=== PATIENT | female | born 1975 | race Caucasian/White ===

== ENCOUNTER → 2022-04-06 | Outpatient (CLI) | payer MEDICARE ==
--- NOTE | 2022-04-27 10:47 | MM ---
Reason for Exam: Screening (asymptomatic). Last mammogram was performed 3 year(s) and 7 month(s) ago. Risk Values: Diana 5 year model risk: 0.5%. NCI Lifetime model risk: 6.4%. Prior Study Comparison: 05/11/2017 Bilateral MG screening mammo w CAD - 2, [place]. 08/31/2018 Bilateral MG screening mammo w [address] Tissue Density: The breast tissue is heterogeneously dense. This may lower the sensitivity of mammography. Findings: Analyzed By CAD. There is no suspicious group of microcalcifications or new suspicious mass in either breast. Overall Assessment: Negative, BI-RAD 1 Management: Screening Mammogram of both breasts in 1 year. A clinical breast exam by your physician is recommended on an annual basis and results should be correlated with mammographic findings. Electronically signed and approved by: Kyle Caruso M.D.
== END | disposition home or self-care (01) ==
LOC: RADMAMWWP 13:30
PROVIDERS: ATTEND Family Medicine
DX: Z12.13 Encounter for screening for malignant neoplasm of small intestine (principal)
CPT/HCPCS: 77063; 77067

== ENCOUNTER → 2023-07-10 | Outpatient (CLI) | payer MEDICARE ==
--- NOTE | 2023-07-10 15:06 | US ---
EXAMINATION TYPE: US pelvic complete DATE OF EXAM: 07/10/2023 COMPARISON: NONE CLINICAL INDICATION: Female, 48 years old with history of N92.1 EXCESSIVE AND FREQUENT MENSTRUATION W ITH IRR; Irregular menses. TECHNIQUE: Transabdominal (TA). Transabdominal sonographic images of the pelvis were acquired. Date of LMP: 07/06/2023, G0 EXAM MEASUREMENTS: Uterus: 7.2 x 4.4 x 3.3 cm Endometrial Stripe: 0.3 cm Right Ovary: 2.7 x 1.6 x 1.3 cm Left Ovary: 2.4 x 1.8 x 1.2 cm 1. Uterus: Anteverted Heterogenous without discrete mass. 2. Endometrium: wnl 3. Right Ovary: follicle seen 4. Left Ovary: follicle seen 5. Bilateral Adnexa: wnl 6. Posterior cul-de-sac: trace amount of free fluid seen Cervix- nabothian cyst IMPRESSION: 1. No evidence for acute abdominal process. 2. Endometrium is within normal limits for thickness.
== END | disposition home or self-care (01) ==
LOC: RADUSWWP 14:35
PROVIDERS: ATTEND Obstetrics & Gynecology
DX: N92.1 Excessive and frequent menstruation with irregular cycle (principal)
CPT/HCPCS: 76856

== ENCOUNTER → 2024-05-17 | Outpatient (CLI) | payer MEDICARE ==
[2024-05-17 14:51] LABS: Basophils # (A) 0.05 X 10*3/uL (0.00-0.10); Basophils % (A) 0.9 %; Eosinophils # (A) 0.19 X 10*3/uL (0.04-0.35); Eosinophils % (A) 3.6 %; HCT 40.4 % (37.2-46.3); HGB 13.1 g/dL (12.0-15.0); Lymphocytes % (A) 26.5 %; MCH 29.5 pg (27.0-32.0); MCHC 32.4 g/dL (32.0-37.0); Mean Platelet Volume 8.9 FL (9.5-12.2); Monocytes # (A) 0.58 X 10*3/uL (0.20-1.00); NRBC Per 100 WBC 0 X 10*3/uL (0.00-0.01); Neutrophils # (A) 3.04 X 10*3/uL (1.80-7.70); Neutrophils % (A) 57.6 %; Platelet Count 302 X 10*3/uL (140-440); RBC 4.44 X 10*6/uL (4.10-5.20); WBC 5.28 X 10*3/uL (4.50-10.00)
[2024-05-17 17:43] LABS: ALT 18 U/L (8-44); AST 16 U/L (13-35); Albumin 4.5 g/dL (3.8-4.9); Albumin/Globulin Ratio 2.05 Ratio (1.60-3.17); Alkaline Phosphatase 46 U/L (41-126); Blood Urea Nitrogen 10.8 mg/dL (9.0-27.0); Calcium 9.5 mg/dL (8.7-10.3); Carbon Dioxide 24.3 mmol/L (21.6-31.8); Chloride 108 mmol/L (96-109); Chol/HDL Ratio 2.83 Ratio; Globulin 2.2 g/dL (1.6-3.3); Glucose 92 mg/dL (70-110); LDL Cholesterol,Calculated 99.6 mg/dL (0.0-131.0); Potassium 4.7 mmol/L (3.5-5.5); Sodium 143 mmol/L (135-145); Total Bilirubin 0.3 mg/dL (0.3-1.2); Total Protein 6.7 g/dL (6.2-8.2)
== END | disposition home or self-care (01) ==
LOC: LABWHC1 09:41
PROVIDERS: ATTEND Internal Medicine
DX: Z00.00 Encounter for general adult medical examination without abnormal findings (principal)
CPT/HCPCS: 36415; 80053; 80061; 84443; 85025

== ENCOUNTER → 2024-06-11 | Outpatient (CLI) | payer MEDICARE ==
--- NOTE | 2024-07-08 12:50 | XR ---
Gorman Kasia ID: [id number] : 1975 EXAMINATION TYPE: XR chest 2V DATE OF EXAM: 06/12/2024 COMPARISON: None HISTORY: 49-year-old female reactive airways disease, shortness of breath TECHNIQUE: Frontal and lateral views FINDINGS: Heart normal size. Aorta and pulmonary vasculature are within normal limits. There is mild patchy den sity at the left base. No other consolidation or pleural effusion seen. IMPRESSION: Some patchy atelectasis versus early developing infiltrate at the left base. Correlate for any sympto ms of pneumonia.
== END ==
LOC: EEVIPCON 15:00 → CPPFTMAIN 15:00
PROVIDERS: ATTEND Internal Medicine
DX: Z12.31 Encounter for screening mammogram for malignant neoplasm of breast (principal); J45.909 Unspecified asthma, uncomplicated
CPT/HCPCS: 71046; 94060; 94726; 94729

== ENCOUNTER → 2024-08-02 | Outpatient (CLI) | payer MEDICARE ==
--- NOTE | 2024-08-05 08:29 | MM ---
Reason for Exam: Screening (asymptomatic). Last mammogram was performed 2 year(s) and 4 month(s) ago. Patient History: Menarche at age 16. Last menstrual period: 08/02/2024 Risk Values: Diana 5 year model risk: 0.6%. NCI Lifetime model risk: 6.1%. Prior Study Comparison: 05/11/2017 Bilateral MG screening mammo w CAD - 2, [place]. 08/31/2018 Bilateral MG screening mammo w CAD - 2, [place]. 04/06/2022 Bilateral MG 3D screening mammo w/cad, [facility]. Tissue Density: The breasts are heterogeneously dense, which may obscure small masses. Findings: Analyzed By CAD. There is no suspicious group of microcalcifications or textural distortion. Vague nodular densities in the upper margin of the left breast and posterior central to central lower right breast for which spot compression views are recommended. Recommend repeat CC view with X CCL view. Overall Assessment: Incomplete: need additional imaging evaluation, BI-RAD 0 Management: Diagnostic Mammogram of both breasts. . Patient should continue monthly self-breast exams. A clinical breast exam by your physician is recommended on an annual basis. This exam should not preclude additional follow-up of suspicious palpable abnormalities. Note on Diana scores and lifetime risk: 1. A Diana score greater than 3% is considered moderate risk. If this is the case, consider specialist referral to assess eligibility for a risk reducing agent. 2. If overall lifetime risk for the development of breast cancer is 20% or higher, the patient may qualify for future screening with alternating mammogram and breast MRI. [facility], , 08/05/2024 8:26 AM. Electronically signed and approved by: Lloyd Foster M.D. Radiologis
== END | disposition home or self-care (01) ==
LOC: RADMAMWWP 13:08
PROVIDERS: ATTEND Internal Medicine
CPT/HCPCS: 77063; 77067

== ENCOUNTER → 2024-08-02 | Outpatient (CLI) | payer MEDICARE ==
--- NOTE | 2024-08-02 15:11 | XR ---
EXAMINATION TYPE: XR chest 2V DATE OF EXAM: 08/02/2024 COMPARISON: 06/11/2024 HISTORY: 49-year-old female follow-up pneumonia, J18.9 PNEUMONIA, UNSPECIFIED ORGANISM TECHNIQUE: Frontal and lateral views FINDINGS: Heart upper limits of normal in size. Aorta and pulmonary vasculature within normal limits. There is mild interstitial density which remains. The previous patchy density at the left base shows improveme nt. Degenerative change left glenohumeral joint. IMPRESSION: The previous patchy left basilar density shows improvement. Mild diffuse interstitial density remains . Correlate for any bronchitis or chronic asthma. [facility], , 08/02/2024 3:08 PM
== END | disposition home or self-care (01) ==
LOC: RADXRMAIN 10:59
PROVIDERS: ATTEND Internal Medicine
CPT/HCPCS: 71046

== ENCOUNTER → 2024-08-09 | Outpatient (CLI) | payer MEDICARE ==
--- NOTE | 2024-08-09 10:51 | CT ---
EXAMINATION TYPE: CT chest w con DATE OF EXAM: 08/09/2024 COMPARISON: None HISTORY: abnormal chest xray CT DLP: 153.4 mGycm Automated exposure control for dose reduction was used. TECHNIQUE: CT scan of the chest is performed with IV Contrast, patient injected with 100 mL of Isovue 300. MIP Images are created on CT scanner and reviewed. 3D reconstructed images are created on an independent workstation and reviewed. FINDINGS: There are 2 small less than 3 mm nodules in the right lung. There is no suspicious lung nodule. There is no abnormal air space consolidative density or abnormal interstitial density. There is no pleural effusion, pleural thickening or pneumothorax. There is thyromegaly and multiple small cysts in the thyroid gland. Correlate with thyroid ultrasound . The great vessels the chest are normal and there is no mediastinal, hilar or axillary adenopathy. Scanning of the upper abdomen reveals no gross abnormality. No focal osseous lesions are seen. IMPRESSION: 1. No acute cardiopulmonary disease. 2. 2 sub-3 mm right lung nodules. No suspicious lung mass or nodule. 3. Thyromegaly with thyroid cysts. Possibly correlate with thyroid ultrasound. [facility], , 08/09/2024 10:48 AM
== END | disposition home or self-care (01) ==
LOC: RADCTMAIN 10:01
PROVIDERS: ATTEND Internal Medicine
CPT/HCPCS: 71260

== ENCOUNTER → 2024-08-09 | Outpatient (CLI) | payer MEDICARE ==
--- NOTE | 2024-08-09 09:47 | MM ---
Reason for Exam: Additional evaluation requested from abnormal screening. Last screening mammogram was performed less than 1 month ago. Patient History: Menarche at age 16. Risk Values: Diana 5 year model risk: 0.6%. NCI Lifetime model risk: 6.1%. Prior Study Comparison: 04/06/2022 Bilateral MG 3D screening mammo w/cad, [facility]. 08/02/2024 Bilateral MG 3D screening mammo w/cad, [facility]. Tissue Density: The breasts are heterogeneously dense, which may obscure small masses. Findings: Analyzed By CAD. Area of concern/asymmetry compresses out on spot compression imaging in the bilateral breasts. No suspicious masses, calcifications or distortions. Overall Assessment: Negative, BI-RAD 1 Management: Screening Mammogram of both breasts in 1 year. Results were given to the patient verbally at the time of exam. Patient should continue monthly self-breast exams. A clinical breast exam by your physician is recommended on an annual basis. This exam should not preclude additional follow-up of suspicious palpable abnormalities. Note on Diana scores and lifetime risk: 1. A Diana score greater than 3% is considered moderate risk. If this is the case, consider specialist referral to assess eligibility for a risk reducing agent. 2. If overall lifetime risk for the development of breast cancer is 20% or higher, the patient may qualify for future screening with alternating mammogram and breast MRI. [facility], , 08/09/2024 9:44 AM. Electronically signed and approved by: uJlio Fritz DO
== END | disposition home or self-care (01) ==
LOC: RADMAMWWP 09:10
PROVIDERS: ATTEND Internal Medicine
CPT/HCPCS: 77062; 77066

== ENCOUNTER 2024-10-02 09:01 | Day surgery (SDC) | payer MEDICARE ==
[2024-10-02 09:43] VITALS: RESP 16; TEMP 97.9
[2024-10-02] MEDS: IV FLUID CONTINUATION 1,000 ML IV ONE (09:44)
[2024-10-02] MEDS: LACTATED RINGERS 1,000 ML IV SCH (09:49)
[2024-10-02] MEDS ORDERED: PROPOFOL 10 MG/ML 20 ML VIAL IV ONE (10:52)
--- NOTE | 2024-10-02 11:15 | P.PCN ---
Date of Procedure: 10/02/24 Procedure(s) Performed: BRIEF HISTORY: Patient is a 49-year-old pleasant white female scheduled for an elective colonoscopy as a part of screening for colon cancer. PROCEDURE PERFORMED: Colonoscopy. PREOPERATIVE DIAGNOSIS: Screening for colon cancer. IV sedation per Anesthesia. PROCEDURE: After informed consent was obtained, the patient, was brought into the endoscopy unit. IV sedation was administered by Anesthesia under continuous monitoring. Digital rectal examination was normal. Initially the Olympus CF-160 flexible video colonoscope was then inserted in the rectum, gradually advanced into the cecum without any difficulty. Careful examination was performed as the scope was gradually being withdrawn. Ileocecal valve and the appendiceal orifice were visualized and appeared normal. Prep was fair.. Mucosa of the cecum, ascending colon, transverse colon, descending colon, sigmoid colon, and rectum appeared normal. Retroflexion was performed in the rectum and no lesions were seen. The patient tolerated the procedure well. IMPRESSION: Normal-appearing colon from rectum to cecum with no evidence of colorectal neoplasia. RECOMMENDATIONS: Findings of this examination were discussed with the patient as well as her family. She was advised to have repeat screening colonoscopy in 10 years.
[2024-10-02 11:31] VITALS: BP 113/68; PULSE 70
== END 2024-10-02 11:51 | disposition home or self-care (01) ==
LOC: ORWHC2ENDO 09:01
PROVIDERS: ATTEND Internal Medicine Gastroenterology
DX: Z12.11 Encounter for screening for malignant neoplasm of colon (principal); Z79.899 Other long term (current) drug therapy
CPT/HCPCS: 81025; J2704; G0121